=== PATIENT | male | born 1935 | race Caucasian/White ===

== ENCOUNTER → 2016-10-13 | Outpatient (CLI) | payer OTHER | LOC: BMCIMAGING 11:09 | PROVIDERS: ATTEND Internal Medicine | DX: J06.9 Acute upper respiratory infection, unspecified (principal); I51.7 Cardiomegaly ==

== ENCOUNTER → 2017-09-09 | Outpatient (CLI) | payer OTHER ==
[~2017-09-09] MED LIST: IOPAMIDOL (ISOVUE-300) 100 ML BTL ONE
== END ==
LOC: FIMAGING 14:10
PROVIDERS: ATTEND Urology
DX: R19.00 Intra-abdominal and pelvic swelling, mass and lump, unspecified site (principal); K86.9 Disease of pancreas, unspecified; N40.0 Benign prostatic hyperplasia without lower urinary tract symptoms
CPT/HCPCS: 74177; Q9967

== ENCOUNTER 2018-05-10 15:02 | Day surgery (SDC) | payer OTHER ==
[2018-05-10] MEDS ORDERED: LR 1,000 ML IV ONE (15:20)
[2018-05-10] MEDS ORDERED: PIPERACILLIN/TAZO 2.25 GM/DEX 50 ML IV ONE (15:57)
--- NOTE | 2018-05-10 15:59 | PDHPUP ---
History & Physical Update H&P update statement: This history and physical update is based on an assessment of the patient which was completed after admission or registration (within 24 hours), but prior to the surgery/procedure. H&P update: H&P reviewed & patient examined
[2018-05-10] MEDS ORDERED: GENTAMICIN 80 MG/NACL 100 ML IV ONE (16:00)
[2018-05-10] MEDS ORDERED: LIDOCAINE 2% JELLY 20 ML (UROJECT) ONE (16:08)
--- NOTE | 2018-05-10 16:31 | PDANEPAE ---
ANE History of Present Illness laser turp ANE Past Medical History - Cardiovascular History Hx Hypertension: Yes Hx Arrhythmias: Yes Hx Chest Pain: No Hx Coronary Artery / Peripheral Vascular Disease: No Hx CHF / Valvular Disease: Yes Hx Palpitations: No Cardiovascular History Comment: htn. afib. mitral regurg. followed by [facility] - Pulmonary History Hx COPD: No Hx Asthma/Reactive Airway Disease: No Hx Recent Upper Respiratory Infection: No Hx Oxygen in Use at Home: No Hx Sleep Apnea: No Sleep Apnea Screening Result - Last Documented: Positive Pulmonary History Comment: steve triggers - Neurologic History Hx Cerebrovascular Accident: No Hx Seizures: No Hx Dementia: No - Endocrine History Hx Diabetes: No Hypothyroid: No Hyperthyroid: No Obesity: no - Renal History Hx Renal Disorders: No Renal History Comment: bph. uti's - Liver History Hx Hepatic Disorders: No - Neurological & Psychiatric Hx Hx Neurological and Psychiatric Disorders: No - Cancer History Hx Cancer: Yes Cancer History Comment: basal cell on face- removed - Congenital Disorder History Hx Congenital Disorders: No - GI History Hx Gastrointestinal Disorders: Yes Gastrointestinal History Comment: hx of colon polyp - Other Health History Other Health History: thrombocytopenia. - Chronic Pain History Chronic Pain: No - Surgical History Prior Surgeries: bilateral TKA's. Cardioversion 01/11/15 with carmen. right RTC repair ANE Review of Systems Review of Systems: - Exercise capacity Exercise capacity: >=4 METS METS (RN): 4 METS ANE Patient History - Allergies Allergies/Adverse Reactions: No Known Allergies Allergy (Verified 05/07/18 10:46) - Home Medications Home Medications: Doxazosin Mesylate [Cardura] 08/02/11 [Last Taken 05/10/18 07:00] Eliquis 05/07/18 [Last Taken 05/08/18] Finasteride 05/07/18 [Last Taken 05/10/18 07:00] Metoprolol Tartrate BID 05/07/18 [Last Taken 05/10/18 07:00] Sulfamethoxazole/Trimethoprim 05/07/18 [Last Taken 05/10/18 07:00] Tamsulosin HCl 05/07/18 [Last Taken 05/10/18 07:00] - NPO status NPO Status: no food or drink >8 hours NPO Since - Liquids (Date): 05/10/18 NPO Since - Liquids (Time): 07:00 NPO Since - Solids (Date): 05/09/18 NPO Since - Solids (Time): 18:30 - Anes Hx Anes Hx: no prior problems - Smoking Hx Smoking Status: Never smoked - Family Anes Hx Family Hx Anesthesia Complications: none ANE Labs/Vital Signs - Vital Signs Blood Pressure: 147/80 Heart Rate: 82 Respiratory Rate: 16 O2 Sat (%): 95 Height: 182.88 cm Weight: 90.718 kg ANE Physical Exam - Airway Mallampati Score: Class 2 Mouth exam: normal dental/mouth exam - Pulmonary Pulmonary: no respiratory distress - Cardiovascular Cardiovascular: regular rate and rhythym - ASA Status ASA Status: II ANE Anesthesia Plan Anesthesia Plan: general endotracheal anesthesia, GA w LMA
[2018-05-10] MEDS ORDERED: SUCCINYLCHOLINE CHLORIDE 200 MG/10 ML SYR IVP ONE (16:37)
[2018-05-10] MEDS ORDERED: DEXAMETHASONE 4 MG/ML VIAL ONE (16:37)
[2018-05-10] MEDS ORDERED: ROCURONIUM 50 MG/5 ML VIAL ONE (16:37)
[2018-05-10] MEDS ORDERED: KETOROLAC 30 MG/1 ML SDV ONE (16:37)
[2018-05-10] MEDS ORDERED: ONDANSETRON 4 MG/2 ML VIAL ONE (16:38)
[2018-05-10] MEDS ORDERED: fentaNYL 100 MCG/2 ML INJ ONE (16:40)
[2018-05-10] MEDS ORDERED: PROPOFOL 200 MG/20 ML VIAL ONE (16:40)
[2018-05-10] MEDS ORDERED: LIDOCAINE 2% 2 ML INJ ONE ×3 (16:40)
[2018-05-10] MEDS ORDERED: ePHEDrine SULFATE 25 MG/5 ML SYR ONE (17:45)
[2018-05-10 18:08] LABS: INR 1.06 (0.83-1.16)
[2018-05-10] MEDS ORDERED: SUGAMMADEX SODIUM 200 MG/2 ML VIAL IVP ONE (18:52)
--- NOTE | 2018-05-10 19:05 | POSTANESTH ---
Post Anesthetic Evaluation Cardiovascular Status: Normal, Stable Respiratory Status: Normal, Stable Level of Consciousness/Mental Status: Can Participate in Eval Pain Control: Adequate, Prn Tx Ordered Nausea/Vomiting Control: Adequate, Prn Tx Ordered Complications Possibly Related to Anesthesia: None Noted
[2018-05-10] MEDS ORDERED: ALBUTEROL 3 ML DEYVIAL IH PRN (19:06)
[2018-05-10] MEDS ORDERED: NALOXONE HCL 0.4 MG/ML INJ IVP PRN (19:06)
[2018-05-10] MEDS ORDERED: ONDANSETRON 4 MG/2 ML VIAL IVP PRN (19:06)
[2018-05-10] MEDS ORDERED: LR 500 ML IV PRN (19:06)
[2018-05-10] MEDS ORDERED: fentaNYL 100 MCG/2 ML INJ IVP PRN (19:06)
[2018-05-10] MEDS ORDERED: METOPROLOL TARTRATE 50 MG TAB PO ONE (19:30)
--- NOTE | 2018-05-10 20:03 | POSTOPPROG ---
Post Op Note Date of Operation: 05/10/18 Surgeon: Juan Diego Weiner Anesthesia: GET(General Endotracheal) Pre-op Diagnosis: Bladder outlet obstruction Post-op Diagnosis: Bladder outlet obstruction Indication: same Procedure: PVP Findings: excellent channel Inf/Abcess present in the surg proc area at time of surgery?: No Depth: Deep Incisional (Fascial) EBL: Minimal
[2018-05-10] MEDS ORDERED: OXYBUTYNIN 5 MG EXT REL TAB PO SCH (20:15)
[2018-05-10 20:42] VITALS: BP 178/90
== END 2018-05-10 20:42 | disposition home or self-care (01) ==
LOC: FSGY 15:02
PROVIDERS: ATTEND Urology
PROC: 0V508ZZ Destruction of Prostate, Via Natural or Artificial Opening Endoscopic (ICD-10-PCS; principal; 2018-05-10 16:15)
DX: N13.8 Other obstructive and reflux uropathy (principal); N40.1 Benign prostatic hyperplasia with lower urinary tract symptoms; R35.0 Frequency of micturition; R39.15 Urgency of urination; R97.20 Elevated prostate specific antigen [PSA]; I10 Essential (primary) hypertension; I48.91 Unspecified atrial fibrillation; I34.0 Nonrheumatic mitral (valve) insufficiency; Z79.01 Long term (current) use of anticoagulants; Z96.653 Presence of artificial knee joint, bilateral; Z87.440 Personal history of urinary (tract) infections
CPT/HCPCS: J0330; J1100; J1580; J1885; J2405; J2543; J2704; J3010